=== PATIENT | female | born 1980 | race Caucasian/White ===

== ENCOUNTER 2017-02-18 19:58 | Emergency (ER) | payer MEDICAID ==
[~2017-02-18] VITALS: Ht 152.4 cm; Wt 67.6 kg
[2017-02-18 20:05] VITALS: BP 111/72
--- NOTE | 2017-02-18 20:05 | NUR ---
PT PLACED IN LOBBY TO WAIT FOR BED.
[2017-02-18 21:53] LABS: BASOPHILS # (AUTO) 0.1 K/uL (0.00-0.22); BASOPHILS % (AUTO) 1.5 % (0.0-2.0); EOSINOPHILS # (AUTO) 0.1 K/uL (0-0.4); EOSINOPHILS % (AUTO) 1.5 % (0.0-4.0); HEMATOCRIT 38.7 % (36-48); HEMOGLOBIN 12.7 g/dL (12.0-16.0); LYMPHOCYTES # (AUTO) 2.3 K/uL (2.5-16.5); LYMPHOCYTES % (AUTO) 23.7 % (20.5-51.1); MEAN CORPUSCULAR HEMOGLOBIN 28 pg (27-31); MEAN CORPUSCULAR HGB CONC 33 g/dL (33-37); MEAN CORPUSCULAR VOLUME 86 fL (80-94); MONOCYTES # (AUTO) 0.6 K/uL (0.8-1.0); MONOCYTES % (AUTO) 6.1 % (1.7-9.3); NEUTROPHILS # (AUTO) 6.6 K/uL (1.8-7.7); NEUTROPHILS % (AUTO) 67.2 % (42.2-75.2); PLATELET COUNT (AUTO) 230 K/uL (140-450); RED BLOOD CELL COUNT(AUTO) 4.49 MIL/uL (4.20-5.40); RED CELL DISTRIBUTION WIDTH 12.3 % (11.6-13.7); WHITE BLOOD COUNT (AUTO) 9.7 K/uL (4.8-10.8)
--- NOTE | 2017-02-18 21:59 | NUR ---
PT TAKEN TO BED 12.
[2017-02-18 22:14] LABS: APPEARANCE,URINE CLEAR (CLEAR); BILIRUBIN,URINE NEGATIVE (NEGATIVE); BLOOD, URINE NEGATIVE (NEGATIVE); COLOR,URINE YELLOW (YELLOW); LEUKOCYTE ESTERASE ,URINE NEGATIVE (NEGATIVE); NITRITE, URINE NEGATIVE (NEGATIVE); UGLUCOSE NEGATIVE (NEGATIVE)
[2017-02-18 22:21] LABS: ANION GAP 11.7 (8-16); CARBON DIOXIDE 29.4 mmol/L (21-32); POTASSIUM 4.1 mmol/L (3.5-5.1)
[2017-02-18 22:22] LABS: ALBUMIN 3.1 g/dL (3.4-5.0); CREATININE 0.5 mg/dL (0.6-1.3); TOTAL BILIRUBIN 0.1 mg/dL (0.0-1.0)
--- NOTE | 2017-02-18 22:25 | NUR ---
PT C/O LOWER ABD PAIN, NO PMH, NKA C/O LOWER ABD PAIN 8/10, NON RADIATING, CRAMPING PAIN. PT DENIES N/V/D, VAGINAL BLEEDING. DENIES UTI SYMPTOMS. [id number]. PT DENIES CARE.
[2017-02-18] MEDS ORDERED: ACETAMINOPHEN EXTRA STRENGTH 500 MG TAB PO ONE (22:55)
--- NOTE | 2017-02-18 23:08 | NUR ---
MEDICATED PER [facility] ORDER, PATIENT TOLERATED WELL.
[2017-02-18 23:35] VITALS: BP 111/72
--- NOTE | 2017-02-18 23:35 | NUR ---
Patient discharged with v/s stable. Written and verbal after care instructions given and explained. Patient alert, oriented and verbalized understanding of instructions. Ambulatory with steady gait. All questions addressed prior to discharge. ID band removed. Patient advised to follow up with PMD. Rx of TYLENOL 650MG given. Patient educated on indication of medication including possible reaction and side effects. Opportunity to ask questions provided and answered.
== END 2017-02-18 23:35 | disposition home or self-care (01) ==
LOC: MED 19:58
DX: O71.89 Other specified obstetric trauma (principal); Z3A.16 16 weeks gestation of pregnancy
CPT/HCPCS: 36415; 76805; 80053; 81003; 81025; 85025; 99285

== ENCOUNTER 2021-01-26 09:50 | Emergency (ER) | payer MEDICAID ==
[~2021-01-26] VITALS: Ht 152.4 cm; Wt 71.4 kg
[2021-01-26 10:12] VITALS: BP 150/95
--- NOTE | 2021-01-26 10:50 | NUR ---
Pt ambulated to bed 05.
--- NOTE | 2021-01-26 10:58 | NUR ---
TEO AVERY AT BEDSIDE EXAMINING PT
--- NOTE | 2021-01-26 11:00 | NUR ---
40 Y/O FEMALE C/O RT ARM PAIN X 1 DAY. PT STATES WOKE UP WITH THE PAIN THIS AM. DENIES ANY TRAUMA OR INJURY. PT HAD A PREVIOUS INJURY IN THE PAST., "AWHILE BACK" MEDHX: DENIES NKA
[2021-01-26] MEDS ORDERED: KETOROLAC 30 MG/ML VIAL IM ONE (11:10)
[2021-01-26] MEDS ORDERED: CYCL-711 PO (11:17)
[2021-01-26] MEDS ORDERED: NAPR-54 PO (11:17)
[2021-01-26 11:45] VITALS: BP 150/95
--- NOTE | 2021-01-26 11:45 | NUR ---
Patient discharged with v/s stable. Written and verbal after care instructions given and explained. Patient alert, oriented and verbalized understanding of instructions. Ambulatory with steady gait. All questions addressed prior to discharge. ID band removed. Patient advised to follow up with PMD. Rx of NAPROXEN AND FLEXERIL given. Patient educated on indication of medication including possible reaction and side effects. Opportunity to ask questions provided and answered.
== END 2021-01-26 11:45 | disposition home or self-care (01) ==
LOC: MED 09:50
DX: M75.21 Bicipital tendinitis, right shoulder (principal)
CPT/HCPCS: 73030; 96372; 99283; J1885